=== PATIENT | male | born 2000 | race Caucasian/White ===

== ENCOUNTER 2025-03-11 18:42 | Emergency (ER) | payer SELFPAY ==
[~2025-03-11] VITALS: Ht 182.9 cm; Wt 75.0 kg
[2025-03-11 18:51] VITALS: BP 137/80; PULSE 82; RESP 16; TEMP 36.8; O2SAT 98
[2025-03-11 19:48] LABS: BASOPHILS % 1.2 % (0.0-2.0); EOSINOPHILS % 1.2 % (0.0-5.0); HEMATOCRIT. 41.6 % (42.0-52.0); HEMOGLOBIN. 14.4 g/dL (14.0-18.0); LYMPHOCYTES % 25.4 % (20.0-50.0); MEAN CORPUSCULAR HEMOGLOBIN 33.5 pg (28.0-32.0); MEAN CORPUSCULAR HGB CONC 34.7 g/dL (31.0-37.0); MEAN CORPUSCULAR VOLUME 96.7 fL (80.0-94.0); MEAN PLATELET VOLUME 7.2 fl (7.4-10.4); MONOCYTES % 7.7 % (2.0-8.0); NEUTROPHILS % 64.5 % (40.0-76.0); PLATELET 306 x1000/uL (130-400); RED CELL DISTRIBUTION WIDTH 13.5 % (11.6-14.6); WHITE BLOOD COUNT 5.6 x1000/uL (4.5-11.0)
[2025-03-11 19:51] LABS: CHLORIDE 105 mEq/L (98-107); POTASSIUM 3.9 mEq/L (3.5-5.1); SODIUM 141 mEq/L (136-145)
[2025-03-11 19:52] LABS: CALCIUM 9.4 mg/dL (8.7-10.4); CARBON DIOXIDE 27 mEq/L (21-32)
[2025-03-11 19:57] LABS: CREATININE 0.7 mg/dL (0.6-1.3); GLUCOSE 113 mg/dL (70-105); UREA NITROGEN BLOOD 10 mg/dL (9-23)
[2025-03-11 19:58] LABS: ETHANOL BLOOD 158 mg/dL (<10)
[2025-03-11 19:59] LABS: ALANINE AMINOTRANSFERASE 90 IU/L (10-49); ALBUMIN 4.4 g/dL (3.2-4.8); ASPARTATE AMINOTRANSFERASE 78 IU/L (<34); BILIRUBIN DIRECT < 0.1 mg/dL (<=3.0); BILIRUBIN TOTAL 0.3 mg/dL (0.1-1.0); PROTEIN TOTAL 7.9 g/dL (6.0-8.3)
[2025-03-11] MEDS ORDERED: FAMO-135 MT (20:55)
== END 2025-03-11 21:53 | disposition left against medical advice (07) ==
LOC: ER 18:42
DX: K76.0 Fatty (change of) liver, not elsewhere classified (principal); F10.129 Alcohol abuse with intoxication, unspecified; Z55.6 Problems related to health literacy; Z59.00 Homelessness unspecified; Z59.71 Insufficient health insurance coverage; Y90.6 Blood alcohol level of 120-199 mg/100 ml
CPT/HCPCS: 36415; 76705; 80048; 80076; 80320; 85025; 99284; G0480